=== PATIENT | female | born 1995 | race Hispanic/Latino ===

== ENCOUNTER 2019-06-11 15:56 | Observation (INO) | payer OTHER ==
[~2019-06-11] VITALS: Ht 162.6 cm; Wt 87.5 kg
== END 2019-06-11 17:08 | disposition home or self-care (01) ==
LOC: EDH 15:56 → LDH 15:57
PROVIDERS: ADMIT Obstetrics & Gynecology; ATTEND Obstetrics & Gynecology
DX: O26.893 Other specified pregnancy related conditions, third trimester (principal); M54.9 Dorsalgia, unspecified; Z3A.38 38 weeks gestation of pregnancy
CPT/HCPCS: 99284; G0378